=== PATIENT | male | born 1940 | race Caucasian/White ===

== ENCOUNTER 2016-11-12 15:16 | Emergency (ER) | payer MEDICARE ==
[~2016-11-12] VITALS: Ht 188 cm; Wt 123.0 kg
[2016-11-12 15:17] VITALS: BP 163/89; PULSE 90; RESP 20; TEMP 97.8; O2SAT 94
--- NOTE | 2016-11-12 15:50 | PD ---
Physical Exam Date Seen by Provider: Nov 12, 2016 Time Seen by Provider: 15:47 Narrative Pt is an 76 year old male presenting lower back pain which started 2 weeks ago, no injury or trauma. Pain radiates across lower back. Pt has hx of kidney stones. Pt is on eliquis and reports dark tar like for the last week. Pain is a7 -8/10. No other complaints at this time. Data Data Last Documented VS Vital Signs Date Time Temp Pulse Resp B/P Pulse Ox O2 Delivery O2 Flow Rate FiO2 11/12/16 15:17 97.8 90 20 163/89 94 Room Air [facility] Supervised Visit with MEGA: Shanice Troy Nov 12, 2016 15:50
[2016-11-12 16:26] VITALS: BP 138/77; PULSE 80; RESP 20
[2016-11-12] MEDS ORDERED: APIX5TAB PO (16:37)
[2016-11-12] MEDS ORDERED: SODIUM CHLORIDE 0.9% FLUSH 10 ML FLUSH IVF PRN (17:00)
--- NOTE | 2016-11-12 17:03 | PD ---
HPI Chief Complaint: GI Complaint Time Seen by Provider: 16:56 Travel History International Travel<30 days: No Contact w/Intl Traveler<30days: No Traveled to known affect area: No History of Present Illness HPI Patient comes emergency Department complaining of bilateral low back pain and constipation ongoing for approximately 2 weeks. Patient states about a week ago feel he started to notice his stool being a little darker than normal. Patient states he's been trying [id number] stool softener as well as a fleets enema today. Patient states he's had a history of kidney stones and thought that may be this was causing his pain. Patient states he's been taking Advil over the past 2 weeks for the pain with no improvement. Patient denies anything making the pain worse. Denies any numbness or tingling. Denies any change in bladder. Denies any chest pain, shortness breath, trauma, or fevers. Patient reports only medication he takes is Eliquis. PFSH Past Medical History Hx Anticoagulant Therapy: Yes (ELOQUIS) Cardiac Catheterization: Yes (cardio ablasion 10/2015) Cardiovascular Problems: Yes (AFIB) Past Surgical History Other Surgery: Yes (Low back surg, 02/2016) Social History Alcohol Use: Yes Tobacco Use: No Substance Use: No Allergies-Medications (Allergen,Severity, Reaction): Coded Allergies: No Known Allergies (Unverified , 11/12/16) Reported Meds & Prescriptions Reported Meds & Active Scripts Active Omeprazole 20 Mg Tab 20 Mg PO DAILY Acetaminophen 325 Mg Tab 325 Mg PO Q4-6H PRN Flomax (Tamsulosin HCl) 0.4 Mg Cap 0.4 Mg PO HS 5 Days Reported Eliquis (Apixaban) 5 Mg Tab 5 Mg PO BID Review of Systems Except as stated in HPI: all other systems reviewed are Neg Physical Exam Narrative GENERAL: Well-developed, overly nourished, in no acute distress, and non-ill appearing. SKIN: Focused skin assessment warm and dry. HEAD: Atraumatic. Normocephalic. EYES: Pupils equal and round. EOMI. No scleral icterus. No injection or drainage. ENT: No nasal bleeding or discharge. Mucous membranes pink and moist. NECK: Trachea midline. No JVD. Supple. No nuclear rigidity. CARDIOVASCULAR: Regular rate and rhythm. No murmur appreciated. RESPIRATORY: No accessory muscle use. No respiratory distress. Clear to auscultation. Breath sounds equal bilaterally. GASTROINTESTINAL: Abdomen soft, non-tender, nondistended. Hepatic and splenic margins not palpable. Normal bowel sounds 4. No pulsatile mass. MUSCULOSKELETAL: No obvious deformities. No clubbing. No cyanosis. No edema. Full range of motion. No tenderness or crepitus or bullae lumbar spine. Patient reports that palpation bilateral lower lumbar muscles. NEUROLOGICAL: Awake and alert. No obvious cranial nerve deficits. Motor grossly within normal limits. Normal speech. PSYCHIATRIC: Appropriate mood and affect; insight and judgment normal. Data Data Last Documented VS Vital Signs Date Time Temp Pulse Resp B/P Pulse Ox O2 Delivery O2 Flow Rate FiO2 11/12/16 18:04 75 20 141/70 94 Room Air 11/12/16 15:17 97.8 Orders Complete Blood Count With Diff (11/12/16 16:54) Comprehensive Metabolic Panel (11/12/16 16:54) Prothrombin Time / Inr (Pt) (11/12/16 16:54) Act Partial Throm Time (Ptt) (11/12/16 16:54) Urinalysis - C+S If Indicated (11/12/16 16:54) Ecg Monitoring (11/12/16 16:54) Iv Access Insert/Monitor (11/12/16 16:54) Oximetry (11/12/16 16:54) Sodium Chloride 0.9% Flush (Ns Flush) (11/12/16 17:00) Ct Abd/Pel W/O Iv Contrast (11/12/16 16:54) Electrocardiogram (11/12/16 16:54) Ketorolac Inj (Toradol Inj) (11/12/16 18:30) Labs Laboratory Tests Test 11/12/16 16:30 White Blood Count 10.5 TH/MM3 Red Blood Count 4.75 MIL/MM3 Hemoglobin 15.2 GM/DL Hematocrit 44.9 % Mean Corpuscular Volume 94.5 FL Mean Corpuscular Hemoglobin 32.0 PG Mean Corpuscular Hemoglobin 33.9 % Concent Red Cell Distribution Width 13.7 % Platelet Count 204 TH/MM3 Mean Platelet Volume 9.1 FL Neutrophils (%) (Auto) 79.1 % Lymphocytes (%) (Auto) 12.5 % Monocytes (%) (Auto) 6.6 % Eosinophils (%) (Auto) 0.8 % Basophils (%) (Auto) 1.0 % Neutrophils # (Auto) 8.3 TH/MM3 Lymphocytes # (Auto) 1.3 TH/MM3 Monocytes # (Auto) 0.7 TH/MM3 Eosinophils # (Auto) 0.1 TH/MM3 Basophils # (Auto) 0.1 TH/MM3 CBC Comment DIFF FINAL Differential Comment Prothrombin Time 10.7 SEC Prothromb Time International 1.0 RATIO Ratio Activated Partial 28.1 SEC Thromboplast Time Urine Color YELLOW Urine Turbidity CLEAR Urine pH 5.0 Urine Specific [place] 1.008 Urine Protein NEG mg/dL Urine Glucose (UA) NEG mg/dL Urine Ketones NEG mg/dL Urine Occult Blood NEG Urine Nitrite NEG Urine Bilirubin NEG Urine Urobilinogen LESS THAN 2.0 MG/DL Urine Leukocyte Esterase NEG Urine RBC 1 /hpf Urine WBC LESS THAN 1 /hpf Urine Hyaline Casts 1 /lpf Urine Mucus FEW /lpf Microscopic Urinalysis Comment CULT NOT INDICATED Sodium Level 137 MEQ/L Potassium Level 4.2 MEQ/L Chloride Level 104 MEQ/L Carbon Dioxide Level 25.1 MEQ/L Anion Gap 8 MEQ/L Blood Urea Nitrogen 14 MG/DL Creatinine 1.03 MG/DL Estimat Glomerular Filtration 70 ML/MIN Rate Random Glucose 83 MG/DL Calcium Level 9.5 MG/DL Total Bilirubin 0.7 MG/DL Aspartate Amino Transf 21 U/L (AST/SGOT) Alanine Aminotransferase 11 U/L (ALT/SGPT) Alkaline Phosphatase 91 U/L Total Protein 7.6 GM/DL Albumin 3.9 GM/DL MDM Medical Decision Making Medical Screen Exam Complete: Yes Emergency Medical Condition: Yes Differential Diagnosis Renal calculi, diverticulitis, GI bleed, anemia, electrolyte imbalance, dehydration, constipation, other Narrative Course Patient in no obvious distress upon re-evaluation. All pertinent laboratory/ Radiology result(s) discussed with patient/family by Dr. Boss. Patient was discharged by Dr. Boss. Please see her documentation for final diagnosis. Pt ambulated without difficulty out of ED at discharge. [facility] Point of Care Internal Pos. & Neg. Controls: Passed Fecal Specimen Occult Blood: Negative Comment Verbal consent was obtained. Digital rectal exam was performed. Stool specimen applied and test interpreted between 1 and 3 minutes of application and the result was negative. Internal Controls: Both positive and negative controls were validated. pen rider Darion Elizabeth was present during this exam. Scripts Omeprazole 20 Mg Tab20 Mg PO DAILY #7 TAB Ref 0 Prov:Francia Boss DO 11/12/16 Acetaminophen 325 Mg [id number] Mg PO Q4-6H PRN (PAIN SCALE 1 TO 4) #20 TAB Ref 0 Prov:Frnacia Boss DO 11/12/16 Tamsulosin (Flomax)0.4 Mg Cap0.4 Mg PO HS 5 Days Ref 0 Prov:Francia Boss DO 11/12/16 Keyon Cruz Nov 12, 2016 17:03
[2016-11-12 17:48] LABS: AUTOMATED NEUTROPHIL # 8.3 TH/MM3 (1.8-7.7); BASOPHIL # 0.1 TH/MM3 (0-0.2); EOSINOPHIL # 0.1 TH/MM3 (0-0.4); EOSINOPHIL % 0.8 % (0.0-4.0); HEMATOCRIT 44.9 % (39.0-51.0); HEMO FLAGS DIFF FINAL; LYMPH % 12.5 % (9.0-44.0); LYMPHOCYTE # 1.3 TH/MM3 (1.0-4.8); MEAN CELL VOLUME 94.5 FL (80.0-100.0); MEAN CORPUSCULAR HGB CONC 33.9 % (32.0-36.0); MONO % 6.6 % (0.0-8.0); NEUT % 79.1 % (16.0-70.0); PLATELET COUNT 204 TH/MM3 (150-450); RED BLOOD COUNT 4.75 MIL/MM3 (4.50-5.90); RED CELL DISTRIBUTION WIDTH 13.7 % (11.6-17.2); WHITE BLOOD COUNT 10.5 TH/MM3 (4.0-11.0)
[2016-11-12 17:51] LABS: BLOOD, URINE NEG (NEG); COMMENT (UR) CULT NOT INDICATED; CULTURE IF INDICATED CULT NOT INDICATED; GLUCOSE,URINE NEG (NEG); HYALINE CAST, URINE 1 /lpf (RARE); KETONE, URINE NEG (NEG); MUCUS URINE FEW /lpf (OCC); NITRITE,URINE NEG (NEG); URINE COLOR YELLOW (YELLW/STRAW)
[2016-11-12 17:59] LABS: APTT (PATIENT) 28.1 SEC (24.3-30.1); PROTHROMBIN TIME - PATIENT 10.7 SEC (9.8-11.6)
--- NOTE | 2016-11-12 18:01 | RADRPT ---
EXAM DATE/TIME: 11/12/2016 17:34 [facility] COMPARISON: No previous studies available for comparison. INDICATIONS : Lower back pain for two weeks with constipation . ORAL CONTRAST: No oral contrast ingested. RADIATION DOSE: 22.67 CTDIvol (mGy) MEDICAL HISTORY : Cardiovascular disease. SURGICAL HISTORY : None. ENCOUNTER: Initial ACUITY: 2 weeks PAIN SCALE: 6/10 LOCATION: Bilateral back TECHNIQUE: Volumetric scanning of the abdomen and pelvis was performed. Using automated exposure control and ad justment of the mA and/or kV according to patient size, radiation dose was kept as low as reasonably achievable to obtain optimal diagnostic quality images. FINDINGS: LOWER LUNGS: The visualized lower lungs are clear. LIVER: Homogeneous density without lesion. There is no dilation of the biliary tree. No calcified gallston es. SPLEEN: Normal size without lesion. PANCREAS: Within normal limits. KIDNEYS: There are multiple bilateral nonobstructing renal stones measuring up to 4 mm in size. No calcificat ions seen along the course of either ureter and both ureters are normal dimension. There are 2 small calcifications seen posterior to the base of the bladder on the right side best seen on image #84; t hese calcifications are located inferior to the insertion of the ureter and probably are phleboliths. ADRENAL GLANDS: Within normal limits. VASCULAR: There is no aortic aneurysm. BOWEL/MESENTERY: No dilated loops of small or large bowel. There is colonic interposition of the hepatic flexure ante rior to the liver. There are multiple small diverticula throughout the sigmoid colon without radiogr aphic evidence of diverticulitis. ABDOMINAL WALL: Within normal limits. RETROPERITONEUM: There is no lymphadenopathy. BLADDER: No wall thickening or mass. No calcifications within the lumen. REPRODUCTIVE: Within normal limits. INGUINAL: There is no lymphadenopathy or hernia. MUSCULOSKELETAL: Degenerative changes of the posterior also lower lumbar spine and asymmetric sclerosis about the left SI joint. CONCLUSION: 1. Multiple small sigmoid diverticula without radiographic evidence of diverticulitis. 2. Multiple bilateral renal stones without evidence of hydronephrosis or calcifications calcified sto karyna in either ureter. Marcelino Schultz MD on November 12, 2016 at 17:54 Board Certified Radiologist. This report was verified electronically.
[2016-11-12 18:04] VITALS: BP 141/70; PULSE 75; RESP 20; O2SAT 94
[2016-11-12 18:11] LABS: ALT (GPT) 11 U/L (12-78); ANION GAP 8 MEQ/L (5-15); AST (GOT) 21 U/L (15-37); BICARBONATE 25.1 MEQ/L (21.0-32.0); BLOOD UREA NITROGEN 14 MG/DL (7-18); CHLORIDE 104 MEQ/L (98-107); GLOMERULAR FILTRATION RATE 70 ML/MIN (>89); POTASSIUM 4.2 MEQ/L (3.5-5.1); SODIUM (NA) 137 MEQ/L (136-145)
[2016-11-12 18:12] LABS: ALKALINE PHOSPHATASE 91 U/L (45-117); TOTAL BILIRUBIN ADULT 0.7 MG/DL (0.2-1.0)
[2016-11-12] MEDS ORDERED: TAMS5CAP PO (18:28)
[2016-11-12] MEDS ORDERED: ACET325T PO (18:28)
--- NOTE | 2016-11-12 18:28 | PD ---
Physical Exam Narrative I, Dr. Boss, have reviewed the advance practice practitioner's documentation and am in agreement, met with the patient face to face, made the diagnosis, and the medical decision making was done by me. *My assessment and Findings: Nephrolithiasis vs. musculoskeletal pain vs. colitis vs. constipation 76yo M with constipation for 2 weeks. States has not had good bowel movement but was able to have bowel movement this morning with some fleet enema. Pt also with bilateral lower back pain that is paraspinal, nonradiating. Denies any fever, trauma, focal weakness or numbness. No red flags. Labs reviewed, no leukocytosis. Creatinine 1.03. UA showed no leukocyte or nitrite. CT a/p showed multiple small sigmoid diverticula without diverticulitis. Multiple bilateral renal stones without evidence of hydronephrosis or calcifications. Pt given toradol for pain. Pt is requesting medication for his GERD, will prescribe a few days of omeprazole. Data Data Last Documented VS Vital Signs Date Time Temp Pulse Resp B/P Pulse Ox O2 Delivery O2 Flow Rate FiO2 11/12/16 18:04 75 20 141/70 94 Room Air 11/12/16 15:17 97.8 Orders Complete Blood Count With Diff (11/12/16 16:54) Comprehensive Metabolic Panel (11/12/16 16:54) Prothrombin Time / Inr (Pt) (11/12/16 16:54) Act Partial Throm Time (Ptt) (11/12/16 16:54) Urinalysis - C+S If Indicated (11/12/16 16:54) Ecg Monitoring (11/12/16 16:54) Iv Access Insert/Monitor (11/12/16 16:54) Oximetry (11/12/16 16:54) Sodium Chloride 0.9% Flush (Ns Flush) (11/12/16 17:00) Ct Abd/Pel W/O Iv Contrast (11/12/16 16:54) Electrocardiogram (11/12/16 16:54) Ketorolac Inj (Toradol Inj) (11/12/16 18:30) Labs Laboratory Tests Test 11/12/16 16:30 White Blood Count 10.5 TH/MM3 Red Blood Count 4.75 MIL/MM3 Hemoglobin 15.2 GM/DL Hematocrit 44.9 % Mean Corpuscular Volume 94.5 FL Mean Corpuscular Hemoglobin 32.0 PG Mean Corpuscular Hemoglobin 33.9 % Concent Red Cell Distribution Width 13.7 % Platelet Count 204 TH/MM3 Mean Platelet Volume 9.1 FL Neutrophils (%) (Auto) 79.1 % Lymphocytes (%) (Auto) 12.5 % Monocytes (%) (Auto) 6.6 % Eosinophils (%) (Auto) 0.8 % Basophils (%) (Auto) 1.0 % Neutrophils # (Auto) 8.3 TH/MM3 Lymphocytes # (Auto) 1.3 TH/MM3 Monocytes # (Auto) 0.7 TH/MM3 Eosinophils # (Auto) 0.1 TH/MM3 Basophils # (Auto) 0.1 TH/MM3 CBC Comment DIFF FINAL Differential Comment Prothrombin Time 10.7 SEC Prothromb Time International 1.0 RATIO Ratio Activated Partial 28.1 SEC Thromboplast Time Urine Color YELLOW Urine Turbidity CLEAR Urine pH 5.0 Urine Specific [place] 1.008 Urine Protein NEG mg/dL Urine Glucose (UA) NEG mg/dL Urine Ketones NEG mg/dL Urine Occult Blood NEG Urine Nitrite NEG Urine Bilirubin NEG Urine Urobilinogen LESS THAN 2.0 MG/DL Urine Leukocyte Esterase NEG Urine RBC 1 /hpf Urine WBC LESS THAN 1 /hpf Urine Hyaline Casts 1 /lpf Urine Mucus FEW /lpf Microscopic Urinalysis Comment CULT NOT INDICATED Sodium Level 137 MEQ/L Potassium Level 4.2 MEQ/L Chloride Level 104 MEQ/L Carbon Dioxide Level 25.1 MEQ/L Anion Gap 8 MEQ/L Blood Urea Nitrogen 14 MG/DL Creatinine 1.03 MG/DL Estimat Glomerular Filtration 70 ML/MIN Rate Random Glucose 83 MG/DL Calcium Level 9.5 MG/DL Total Bilirubin 0.7 MG/DL Aspartate Amino Transf 21 U/L (AST/SGOT) Alanine Aminotransferase 11 U/L (ALT/SGPT) Alkaline Phosphatase 91 U/L Total Protein 7.6 GM/DL Albumin 3.9 GM/DL MDM Supervised Visit with MEGA: Yes Interpretation(s) EKG: NSR 76bpm. LAD. +PVC. TWI III. Diagnosis Primary Impression: Back pain Qualified Code: M54.5 - Bilateral low back pain without sciatica, unspecified chronicity Patient Instructions: General Instructions Departure Forms: Tests/Procedures Additional Instruction: Please follow up with your PMD in 3-7 days. Return to the ED if symptoms worsen. Med/Other Pt SpecificInfo: Prescription(s) given Scripts Omeprazole 20 Mg Tab20 Mg PO DAILY #7 TAB Ref 0 Prov:Francia Boss DO 11/12/16 Acetaminophen 325 Mg Cym145 Mg PO Q4-6H PRN (PAIN SCALE 1 TO 4) #20 TAB Ref 0 Prov:Francia Boss DO 11/12/16 Tamsulosin (Flomax)0.4 Mg Cap0.4 Mg PO HS 5 Days Ref 0 Prov:Francia Boss DO 11/12/16 Disposition: 01 DISCHARGE HOME Condition: Stable Francia Boss DO Nov 12, 2016 18:28
[2016-11-12] MEDS ORDERED: KETOROLAC TROMETHAMINE 30 MG/ML (IVP) VIAL IV PUSH ONE (18:30)
[2016-11-12] MEDS ORDERED: OMEP20TA PO (18:59)
--- NOTE | 2016-11-13 12:21 | EKG ---
Date Performed: 11/12/2016 Time Performed: 17:08:55 PTAGE: 76 years EKG: Sinus rhythm WITH SHORT TN INTERVAL WITH OCCASIONAL VENTRICULAR PREMATURE COMPLEXES WITH OCCASIONAL SUPRAVENTRICU LAR PREMATURE COMPLEXES BORDERLINE LEFT AXIS DEVIATION INCOMPLETE RIGHT BUNDLE BRANCH BLOCK MINIMAL V OLTAGE CRITERIA FOR LVH, CONSIDER NORMAL VARIANT BORDERLINE ECG NO PREVIOUS TRACING DOCTOR: Mj Nelson Interpretating Date/Time 11/13/2016 12:19:10
== END 2016-11-12 19:25 | disposition home or self-care (01) ==
LOC: NEPE 15:16
DX: M54.5 Low back pain (principal); K59.00 Constipation, unspecified; Z87.442 Personal history of urinary calculi; Z79.01 Long term (current) use of anticoagulants; I48.91 Unspecified atrial fibrillation
CPT/HCPCS: 74176; 80053; 81001; 85025; 85610; 85730; 93005; 96374; 99284; J1885